=== PATIENT | female | born 1940 | race Hispanic/Latino ===

== ENCOUNTER 2018-06-06 13:36 | Emergency (ER) | payer OTHER, MEDICARE ==
[2018-06-06] MEDS ORDERED: TDAP Vaccine 0.5 mL Syr IM ONE (13:45)
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
[2018-06-06 14:04] LABS: BASO # 0.02 K/mm3 (0.0-2.0); BASO % 0.3 % (0.0-3.0); EOS # 0.3 (0.0-0.7); EOS % 3.7 % (1.5-5.0); GRAN # 4.15 (1.4-6.5); GRAN % 55.5 % (50.0-68.0); HEMOGLOBIN 15.1 g/dL (12.0-16.0); LYMPH # 2.7 (1.2-3.4); LYMPH % 35.7 % (22.0-35.0); MEAN CELL VOLUME 94.3 fl (80.0-105.0); MEAN CORPUSCULAR HEMOGLOBIN 31.9 pg (25.0-35.0); MEAN CORPUSCULAR HGB CONC 33.8 g/dl (31.0-37.0); MEAN PLATELET VOLUME 10.5 fl (7.0-11.0); MONO # 0.4 (0.1-0.6); MONO % 4.8 % (1.0-6.0); RBC 4.74 10^6/uL (3.5-6.1); RED CELL DISTRIBUTION WIDTH 13.3 % (11.5-14.5); WHITE BLOOD COUNT 7.5 10^3/uL (4.5-11.0)
[2018-06-06 14:13] LABS: ALB/GLOB RATIO 1.4 (1.1-1.8); ALBUMIN 4.2 g/dL (3.0-4.8); ALT/SGPT 46 U/L (7-56); AST/SGOT 42 U/L (14-36); BLOOD UREA NITROGEN 14 mg/dL (7-21); CALCIUM 9.2 mg/dL (8.4-10.5); GFR NON-AFRICAN AMERICAN > 60; INR 2.45; PARTIAL THROMBOPLASTIN TIME 33.9 Seconds (25.1-36.5); PROTHROMBIN TIME 28.7 SECONDS (9.4-12.5)
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
[2018-06-06] MEDS ORDERED: Lidocaine 1% Inj (20ml) IJ STA (15:13)
[2018-06-06] MEDS ORDERED: Lidocaine 1% 5ml Abboject ONE ×2 (15:20→15:23)
[2018-06-06] MEDS ORDERED: Phytonadione 5 MG in Sodium Chloride 0.9% 50 ML IV ONE (15:26)
[2018-06-06] MEDS ORDERED: Sodium Chloride 0.9% 1,000 ML IV STA ×2 (15:27→15:28)
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
--- NOTE | 2018-06-06 15:31 | RAD ---
Date of service: 06/06/2018 PROCEDURE: Left Knee Radiographs. HISTORY: Pain. COMPARISON: None. FINDINGS: BONES: Normal. No fracture. JOINTS: Normal. No osteoarthritis. JOINT EFFUSION: None. OTHER FINDINGS: None. IMPRESSION: Normal radiographs of the left knee.
[2018-06-06 16:10] VITALS: RESP 18
[2018-06-06] MEDS ORDERED: Labetalol 5 mg/ml Inj 20ML IV STA (16:30)
[2018-06-06] MEDS ORDERED: Iohexol 350 MG/100 ML VIAL ONE (16:38)
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
--- NOTE | 2018-06-06 17:17 | CT ---
Date of service: 06/06/2018 CT chest, abdomen, and pelvis with IV contrast Indication: trauma Technique: Contiguous axial images of the chest, abdomen, and pelvis. Coronal and Sagittal reformats generated and reviewed. This CT exam was performed using 1 or more of the following dose reduction techniques: Automated exposure control, adjustment of the MAA and/or kV according to patient size, and/or use of iterative reconstruction technique. Contrast: 100 mL Omnipaque 350 Radiation dose: Total exam DLP = 927.22 MGy-cm. Comparison: chest x-ray performed 06/06/18 Findings: Limited inclusion of the lower neck demonstrates partially imaged right-sided 13 mm rounded structure, possibly enlarged abnormal lymph node. Visualized portions of the inferior thyroid gland appear unremarkable. The mediastinal and hilar vascular structures appear within normal limits. The heart appears within normal limits of size. Debris/mucus within the trachea. Left basilar atelectasis. Small left pleural effusion. No pneumothorax. Hypoattenuation of the liver consistent with hepatic steatosis. Severe diffuse fatty atrophy of the pancreas. 12 mm left renal hypodense lesion, indeterminate. Too small to characterize right renal hypodensities, statistically likely cysts. The kidneys enhance symmetrically. No hydronephrosis. No obstructing calculi. The spleen, adrenal glands, and gallbladder appear grossly unremarkable. Abdominal wall defect on the left with intrathoracic herniation of the stomach. The bowel loops appear within normal limits of caliber without evidence of intestinal obstruction. No secondary signs of acute appendicitis. There is no definite free air. Urinary bladder distension. Posterior right urinary bladder diverticulum. Large amount of fluid within the cervix. Osseous demineralization. Extensive multilevel degenerative changes. Severe scoliosis. Impression: Limited inclusion of the lower neck demonstrates partially imaged right-sided 13 mm rounded structure, possibly enlarged abnormal lymph node. Further evaluation with CT soft tissue of the neck with contrast suggested. Debris/mucus within the trachea. Left basilar atelectasis. Small left pleural effusion. Hypoattenuation of the liver consistent with hepatic steatosis. Severe diffuse fatty atrophy of the pancreas. 12 mm left renal hypodense lesion, indeterminate. Too small to characterize right renal hypodensities, statistically likely cysts. Recommend further evaluation with ultrasound. Abdominal wall defect on the left with intrathoracic herniation of the stomach. Correlate clinically as this may be chronic. Urinary bladder distension. Posterior right urinary bladder diverticulum. Large amount of fluid within the cervix. Recommend further evaluation with pelvic ultrasound. Markedly limited evaluation of the osseous structures due to severe demineralization, multilevel degenerative changes. And scoliosis. Case discussed with Dr. Judd on 06/06/18 at 5:11 p.m.
[2018-06-06 18:03] LABS: PH,URINE 7.5 (4.7-8.0); URINE BILIRUBIN NEGATIVE (NEGATIVE); URINE BLOOD SMALL (NEGATIVE); URINE GLUCOSE (UA) NEGATIVE (NEGATIVE); URINE LEUKOCYTE ESTERASE NEGATIVE Leu/uL (NEGATIVE); URINE PROTEIN NEGATIVE mg/dL (<30 mg/dL); URINE UROBILINOGEN 0.2 E.U./dL (<1 E.U./dL)
[2018-06-06 18:04] LABS: URINE APPEARANCE CLEAR (CLEAR); URINE COLOR YELLOW (YELLOW)
[2018-06-06 18:11] LABS: URINE WBC NEGATIVE /hpf (0-6)
[2018-06-06 18:13] VITALS: BP 140/92; PULSE 81; TEMP 97.9; O2SAT 97
--- NOTE | 2018-06-07 08:05 | CARD ---
APPROVED REPORT Date of service: 06/06/2018 EKG Measurement Heart [id number] <Conclusion> Normal sinus rhythm STTW changes c/w ischemia
== END 2018-06-06 18:09 | disposition short-term general hospital (02) ==
LOC: ED 13:36
DX: S06.5X0A Traumatic subdural hemorrhage without loss of consciousness, initial encounter (principal); V03.00XA Pedestrian on foot injured in collision with car, pick-up truck or van in nontraffic accident, initial encounter; Y92.410 Unspecified street and highway as the place of occurrence of the external cause; Z79.01 Long term (current) use of anticoagulants; I10 Essential (primary) hypertension; I48.91 Unspecified atrial fibrillation; D64.9 Anemia, unspecified; Z86.73 Personal history of transient ischemic attack (TIA), and cerebral infarction without residual deficits; Z95.5 Presence of coronary angioplasty implant and graft; Z23 Encounter for immunization
CPT/HCPCS: 36430; 70450; 70480; 71045; 71260; 72125; 73521; 73560; 74177; 80053; 81001; 85025; 85610; 85730; 86850; 86900; 87040; 87086; 90471; 90715; 93005; 96361; 96365; 96367; 99285; J0295; J2405; J3430; J7030; P9017; Q9967

== ENCOUNTER 2018-06-19 18:47 | Emergency (ER) | payer MEDICARE, OTHER ==
[2018-06-19 18:49] VITALS: BMI 24.0
[2018-06-19] MEDS ORDERED: Sodium Chloride 0.9% 1,000 ML IV STA (19:02)
[2018-06-19 19:09] LABS: BASO # 0.05 K/mm3 (0.0-2.0); BASO % 0.3 % (0.0-3.0); EOS # 0.1 (0.0-0.7); EOS % 0.4 % (1.5-5.0); GRAN # 10.1 (1.4-6.5); GRAN % 61.6 % (50.0-68.0); HEMOGLOBIN 11.7 g/dL (12.0-16.0); LYMPH # 5.2 (1.2-3.4); LYMPH % 31.7 % (22.0-35.0); MEAN CELL VOLUME 105.7 fl (80.0-105.0); MEAN CORPUSCULAR HEMOGLOBIN 31.6 pg (25.0-35.0); MEAN CORPUSCULAR HGB CONC 29.9 g/dl (31.0-37.0); MEAN PLATELET VOLUME 10.5 fl (7.0-11.0); RBC 3.7 10^6/uL (3.5-6.1); RED CELL DISTRIBUTION WIDTH 13.9 % (11.5-14.5); WHITE BLOOD COUNT 16.4 10^3/uL (4.5-11.0)
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
[2018-06-19] MEDS ORDERED: Vancomycin 1gm in NS 250ml 1 GM/250 ML BAG IVPB STA (19:19)
[2018-06-19] MEDS ORDERED: Piperacillin/Tazobact 3.375 gm 100 ML IVPB STA (19:19)
[2018-06-19] MEDS ORDERED: Amiodarone 360 mg/D5W 200 ml 360 MG/200 ML BAG IV ONE (19:22)
[2018-06-19 19:48] LABS: ALB/GLOB RATIO 1.2 (1.1-1.8); ALBUMIN 3.5 g/dL (3.0-4.8); CALCIUM 8.9 mg/dL (8.4-10.5); TROPONIN I 0.24 ng/mL
[2018-06-19 21:16] VITALS: TEMP 97.6
[2018-06-19 22:02] VITALS: BP 92/74
--- NOTE | 2018-06-20 18:55 | CARD ---
APPROVED REPORT Date of service: 06/19/2018 EKG Measurement Heart [id number] <Conclusion> Atrial fibrillation with slow ventricular response Left axis deviation Right bundle branch block Possible Lateral infarct, age undetermined Acute iWMI (STEMI) Abnormal ECG
== END 2018-06-19 21:36 ==
LOC: ED 18:47
DX: I21.3 ST elevation (STEMI) myocardial infarction of unspecified site (principal); I46.9 Cardiac arrest, cause unspecified; I10 Essential (primary) hypertension; I48.91 Unspecified atrial fibrillation; Z86.73 Personal history of transient ischemic attack (TIA), and cerebral infarction without residual deficits